=== PATIENT | male | born 1940 | race Caucasian/White ===

== ENCOUNTER 2019-09-04 09:16 | Day surgery (SDC) | payer MEDICARE, OTHER ==
[~2019-09-04] VITALS: Ht 172.7 cm; Wt 81.8 kg
[2019-09-04] VITALS (7 sets, daily range): BP systolic 109–146; BP diastolic 49–76
[2019-09-04] MEDS ORDERED: normal saline 1000ml 1,000 ML IV SCH (09:40)
[2019-09-04] MEDS ORDERED: ALLO100T PO (10:23)
[2019-09-04] MEDS ORDERED: LOSA25TA96 PO (10:23)
[2019-09-04] MEDS ORDERED: NITR0.4T51 SL (10:23)
[2019-09-04] MEDS ORDERED: METO50TA7 PO (10:23)
[2019-09-04] MEDS ORDERED: XAL0.005OS OP (10:23)
[2019-09-04] MEDS ORDERED: MIRT15TA PO (10:23)
[2019-09-04] MEDS ORDERED: FLUT1BLS4 INH (10:23)
[2019-09-04] MEDS ORDERED: FURO-150 PO (10:23)
[2019-09-04] MEDS ORDERED: ASPI-1265 PO (10:23)
[2019-09-04] MEDS ORDERED: GLIP5TAB13 PO (10:23)
[2019-09-04] MEDS ORDERED: OMEP10SU2 PO (10:23)
[2019-09-04] MEDS ORDERED: METF500T PO (10:23)
[2019-09-04] MEDS ORDERED: fentaNYL/PF 50MCG/1 ML 2ML syringe ONE ×3 (10:33→12:22)
[2019-09-04] MEDS ORDERED: midazolam 2 mg/2 ml injection ONE ×4 (10:33→12:24)
[2019-09-04] MEDS ORDERED: ceFAZolin 1000mg inj ONE (10:34)
[2019-09-04] MEDS ORDERED: vancomycin 1,000mg inj ONE (10:34)
[2019-09-04] MEDS ORDERED: LIDOcaine 1% W/epiNEPHrine 1:100,000 20ml vial ONE (10:34)
[2019-09-04 10:43] LABS: EOSINOPHILS # (AUTO) 0.1 X10'3 (0-0.9); LYMPHOCYTES # (AUTO) 1.7 X10'3 (1.1-4.8); MONOCYTES # (AUTO) 0.4 X10'3 (0-0.9); RED CELL DISTRIBUTION WIDTH 19.1 % (11.5-14.5)
[2019-09-04 10:49] LABS: BASOPHILS % (AUTO) 0.4 % (0-1); EOSINOPHILS % (AUTO) 2.2 % (0-6); HEMATOCRIT 37.2 % (42.0-52.0); HEMOGLOBIN 12.1 g/dl (14.0-17.9); LYMPHOCYTES % (AUTO) 31.3 % (21-51); MEAN CORPUSCULAR HEMOGLOBIN 27.7 PG (27.0-31.0); MEAN CORPUSCULAR HGB CONC 32.6 g/dL (33.0-36.5); MEAN CORPUSCULAR VOLUME 84.8 FL (78-98); MONOCYTES % (AUTO) 6.9 % (2-12); NEUTROPHILS # (AUTO) 3.2 X10'3 (1.8-7.7); NEUTROPHILS % (AUTO) 59.2 % (42-75); PLATELET COUNT 196 X10'3 (140-440); RED BLOOD COUNT 4.39 X10'6 (4.70-6.10); WHITE BLOOD COUNT 5.5 X10'3 (4.5-11.0)
[2019-09-04 11:08] LABS: ALBUMIN 3.3 G/DL (3.4-5.0); ANION GAP 7 (8-16); BLOOD UREA NITROGEN 31 MG/DL (7-18); CALCIUM 9.3 MG/DL (8.5-10.1); CHLORIDE 105 MMOL/L (99-107); CREATININE 1.15 MG/DL (0.60-1.10); POTASSIUM 4.3 MMOL/L (3.5-5.1); SODIUM 140 MMOL/L (135-145); TOTAL CARBON DIOXIDE 27.7 MMOL/L (24-32); eGFR 61 ML/MIN
[2019-09-04 11:10] LABS: GLUCOSE 131 MG/DL (70-104)
[2019-09-04 11:32] LABS: ANISOCYTOSIS 2+; PLATELET ESTIMATE NORMAL
== END 2019-09-04 15:00 | disposition home or self-care (01) ==
LOC: SSTAY O 09:16
PROVIDERS: ATTEND Internal Medicine Cardiovascular Disease
DX: T82.190A Other mechanical complication of cardiac electrode, initial encounter (principal); I50.30 Unspecified diastolic (congestive) heart failure; R06.02 Shortness of breath; R07.89 Other chest pain; R00.1 Bradycardia, unspecified; I48.91 Unspecified atrial fibrillation; Z79.899 Other long term (current) drug therapy; Z79.01 Long term (current) use of anticoagulants; Y83.8 Other surgical procedures as the cause of abnormal reaction of the patient, or of later complication, without mention of misadventure at the time of the procedure; Y92.89 Other specified places as the place of occurrence of the external cause; R06.00 Dyspnea, unspecified
CPT/HCPCS: 33207; 33233; 33235; 36415; 71045; 80048; 83735; 85025; 85610; 93005; 99152; 99153; C1769; C1785; C1894; C1898; J0690; J2250; J3010; J3370; J7050; 33216; 33228; 33234; A4565; A4620; A6449